=== PATIENT | female | born 1975 | race Caucasian/White ===

== ENCOUNTER 2022-02-26 15:26 | Outpatient (CLI) | payer OTHER ==
[~2022-02-26 15:26] MED LIST: Magnevist 469MG/ML 20 ML VIAL ONE
== END 2022-02-26 15:27 | disposition home or self-care (01) ==
LOC: CSHMRI 15:26
PROVIDERS: ATTEND Nurse Practitioner Family
DX: G43.009 Migraine without aura, not intractable, without status migrainosus (principal); E78.2 Mixed hyperlipidemia; G47.33 Obstructive sleep apnea (adult) (pediatric); R53.82 Chronic fatigue, unspecified; Q38.3 Other congenital malformations of tongue; R13.10 Dysphagia, unspecified; F45.8 Other somatoform disorders; R55 Syncope and collapse; R42 Dizziness and giddiness; I95.9 Hypotension, unspecified; R94.02 Abnormal brain scan
CPT/HCPCS: 70553; A9579